=== PATIENT | male | born 1950 | race Caucasian/White ===

== ENCOUNTER 2017-08-06 08:01 | Day surgery (SDC) | payer BC ==
[~2017-08-06 08:01] MED LIST: Lactated Ringers 1,000 ML IV SCH
[2017-08-06] MEDS ORDERED: Propofol 200 MG/20 ML SDV ONE ×2 (09:05→09:31)
[2017-08-06] MEDS ORDERED: fentaNYL 100 MCG/2 ML SDV ONE (09:07)
--- NOTE | 2017-08-06 14:10 | OR ---
PREOPERATIVE DIAGNOSIS: Abdominal pain and abnormal CT findings. POSTOPERATIVE DIAGNOSIS: Abdominal pain and abnormal CT findings. PROCEDURES PERFORMED: 1. Upper endoscopy. 2. Colonoscopy. INDICATIONS: The patient is a 67-year-old male who presents for colonoscopy for further evaluation of CT findings. DESCRIPTION OF PROCEDURE: Procedure was done in the endoscopy suite. Sedation was given per Anesthesia. First attention was turned to the upper endoscopy. Endoscope was inserted across the pharynx into the esophagus into the stomach through the pylorus in the 1st and 2nd portion of duodenum. First and second portion of duodenum were normal. Scope was slowly withdrawn. Retroflexed of the stomach itself was normal. The scope was slowly withdrawn. The GE junction and esophagus were normal. FINAL DIAGNOSIS: Normal upper endoscopy. Next, he was placed in left lateral position. First, a rectal exam was done, was normal. Scope was introduced in the rectum, slowly advanced through the rectum, sigmoid, descending, transverse, and ascending colon until the cecum was reached. Upon reaching the cecum, the scope was slowly withdrawn looking all mucosal surface on the way out. No mucosal abnormalities lesions or polyps were noted. FINAL DIAGNOSIS: Normal colonoscopy. BKD: 08/06/2017 10:09:36 MODL: 08/06/2017 13:58:21 /[id number]
== END 2017-08-06 11:21 | disposition home or self-care (01) ==
LOC: VM.SDS 08:01
PROVIDERS: ATTEND Surgery
DX: R10.11 Right upper quadrant pain (principal); R93.3 Abnormal findings on diagnostic imaging of other parts of digestive tract; F41.9 Anxiety disorder, unspecified; E11.9 Type 2 diabetes mellitus without complications; K21.9 Gastro-esophageal reflux disease without esophagitis; Z88.0 Allergy status to penicillin; Z88.2 Allergy status to sulfonamides; Z79.82 Long term (current) use of aspirin; Z79.84 Long term (current) use of oral hypoglycemic drugs; Z79.899 Other long term (current) drug therapy; Z90.49 Acquired absence of other specified parts of digestive tract; F17.210 Nicotine dependence, cigarettes, uncomplicated
CPT/HCPCS: 43235; 45378; 82962; J2704; J3010; J7120

== ENCOUNTER 2019-12-08 09:02 | Inpatient (IN) | payer BC, MEDICARE ==
[2019-12-08] MEDS ORDERED: ALPRAZolam 0.25 MG Tab PO PRN (09:42)
[2019-12-08] MEDS ORDERED: Sodium Chloride 0.9% 10 ML Syringe FLUSH PRN (09:44)
[2019-12-08] MEDS ORDERED: Acetaminophen 325 MG Tab PO PRN (09:48)
[2019-12-08] MEDS ORDERED: Nicotine 21 MG/24 Hr Patch TRDERM SCH (10:00)
[2019-12-08] MEDS: Albuterol/Ipratropium 3.0-0.5 MG/3 ML Neb Soln NEB SCH ×5 (10:56→22:00)
[2019-12-08 11:08] LABS: ANION GAP 13.4 mmol/L (10-20); CHLORIDE,CL 102 mmol/L (98-107); SODIUM,NA 140 mmol/L (136-145)
[2019-12-08] MEDS: methylPREDNISolone Sodium Succinate 40 MG/1 ML SDV IVPUSH SCH (11:12)
[2019-12-08] MEDS: Nicotine 21 MG/24 Hr Patch TRDERM SCH (11:14)
[2019-12-08] MEDS: Levofloxacin/Dextrose 5%-Water 750 MG in Premix Bag 1 BAG IV SCH (11:27)
[2019-12-08] MEDS: Enoxaparin 40 MG/0.4 ML Syringe SUBCUT SCH (11:27)
[2019-12-08] MEDS ORDERED: Sodium Chloride 0.9% 500 ML IV SCH (14:45)
--- NOTE | 2019-12-08 16:52 | HP ---
CHIEF COMPLAINT: Shortness of breath. HISTORY OF PRESENT ILLNESS: A 69-year-old male patient was seen and examined by me in the clinic today at [facility] for the above-mentioned complaint. The patient had actually been seen in the clinic on 12/03/2019 and was diagnosed with influenza at that time. The patient was started on Tamiflu. He did take the Tamiflu for the full course. However, the patient states he has progressively gotten worse with his breathing. The patient is considerably short of breath. The patient does smoke cigarettes on a daily basis. The patient states that he has had fevers and chills at home. He feels very weak. The patient states that he has had a cough, but he is not able to expectorate any sputum. The patient has had headaches. He denies any dizziness or lightheadedness. The patient has not had any chest pain or palpitations. The patient denies any abdominal pain. Patient has not had any nausea or vomiting. PAST MEDICAL HISTORY: 1. COPD. 2. Rheumatoid arthritis. 3. GERD. 4. Major depressive disorder. 5. Diabetes type 2. 6. Hypertension. 7. Hyperlipidemia. PAST SURGICAL HISTORY: None. FAMILY HISTORY: Noncontributory. SOCIAL HISTORY: The patient does smoke cigarettes on a daily basis. The patient is . The patient is retired. REVIEW OF SYSTEMS: General: Complains of weakness and fatigue, fevers and chills at home. Respiratory: Shortness of breath, cough. Cardiovascular: Denies any chest pain or palpitations. Abdomen: Negative. Skin: Negative. Neurological: The patient denies any dizziness or lightheadedness, but he does endorse a headache. PHYSICAL EXAMINATION: General Presentation: The patient is alert, patient does not appear to be in any acute distress, patient appears to be acutely ill. Respiratory: Lung sounds are decreased, the patient has inspiratory and expiratory wheezing throughout all lung jose, patient has crackles in the left lobe, middle, and lower and right base crackles. Cardiovascular: Regular rate and rhythm, no murmur. Abdomen: Soft, hypoactive bowel sounds, nontender. Skin: Warm, dry, and intact. Neurological: The patient is alert. Patient is oriented to person, place, and time. LABORATORY STUDIES: 1. CBC: White blood cell count 5.6, hemoglobin 15.0, hematocrit 43.5, platelets are 109,000, neutrophils 47%, bands 4%. 2. CMP: Sodium is 140, potassium 4.4, chloride is 102, CO2 is 29, anion gap is 13.4, BUN is 12, creatinine 0.7, GFR is greater than 60, glucose 115, calcium 9.1, bilirubin 0.7, AST 23, ALT 37, alkaline phosphatase 80, total protein 7.1. 3. Lactic acid 0.9. 4. CRP 2.3. 5. UA: pH is 5.5, specific gravity 1.025, negative leukocytes, negative wbc's, negative rbc's. ASSESSMENT: 1. Left lower lobe pneumonia. 2. Acute chronic obstructive pulmonary disease exacerbation. 3. Hypotension. 4. Influenza B. 5. Type 2 diabetes, uncontrolled. 6. Hypertension associated with diabetes. 7. Dyslipidemia associated with type 2 diabetes. 8. Rheumatoid arthritis. 9. Nicotine dependence. PLAN: The patient will be admitted to the acute care floor at [facility] for the above mentioned diagnoses. The patient will be started on Levaquin 750 mg daily as the patient is allergic to penicillins and also for his significant COPD and cigarette smoking. The patient will be started on Solu-Medrol 40 mg daily. He will be started on IV fluids. The patient will be on a diabetic diet. Encourage early ambulation for DVT prophylaxis. The patient does wish to be a full code. The patient does wish to be transferred to higher level of care should the need arise. IV fluids for hypotension. We will have Respiratory Therapy see the patient for nebulizers and cough and deep breathing exercises. Physical Therapy will also see the patient for weakness and deconditioning. I do anticipate the patient to be admitted for at least 3 to 4 days. Note: This patient was seen and examined by me as an [facility] provider. TB: 12/08/2019 14:50:05 MODL: 12/08/2019 16:42:22 /[id number]
[2019-12-08] MEDS: METFORMIN PO SCH (17:38)
[2019-12-08] MEDS ORDERED: metFORMIN 500 MG Tab PO SCH (18:00)
[2019-12-08] MEDS: METOPROLOL TARTRATE 25 MG PO SCH (19:55)
[2019-12-08] MEDS: CITALOPRAM 20 MG PO SCH (20:08)
[2019-12-08] MEDS: ONGLYZA PO SCH (20:08)
[2019-12-08] MEDS: Sodium Chloride 0.9% 1,000 ML IV SCH (21:56)
[2019-12-09] MEDS: Albuterol/Ipratropium 3.0-0.5 MG/3 ML Neb Soln NEB SCH ×6 (02:00→22:33)
[2019-12-09] MEDS: Sodium Chloride 0.9% 1,000 ML IV SCH ×2 (06:27→19:35)
[2019-12-09] MEDS: Pantoprazole 40 MG Tab.CR (OWN SUPPLY) PO SCH (06:28)
[2019-12-09 07:05] LABS: CHLORIDE,CL 104 mmol/L (98-107); SODIUM,NA 142 mmol/L (136-145)
[2019-12-09 07:06] LABS: ANION GAP 11.6 mmol/L (10-20)
[2019-12-09] MEDS ORDERED: Magnesium Sulfate/Water 4 GM in Premix Bag 1 BAG IV ONE (07:34)
[2019-12-09] MEDS: methylPREDNISolone Sodium Succinate 40 MG/1 ML SDV IVPUSH SCH (08:08)
[2019-12-09] MEDS: METOPROLOL TARTRATE 25 MG PO SCH ×2 (08:14→19:31)
[2019-12-09] MEDS: METFORMIN PO SCH ×2 (08:16→17:57)
[2019-12-09] MEDS: Multivitamins with Iron/Calcium/Folic Acid/Minerals Tab PO SCH (08:16)
--- NOTE | 2019-12-09 10:28 | PN ---
Progress Note for SHENG CAMPO Date: 12/09/2019 Room #: VM.206 CHIEF COMPLAINT: Shortness of breath. SUBJECTIVE: A 69-year-old male patient was admitted yesterday to the acute care floor for acute COPD exacerbation, pneumonia, dehydration, hypotension, and hypoxia. The patient states this morning he is feeling much better. The patient states he is not sleeping well overnight. The patient continues to have a productive cough producing a green/yellow appearing purulent sputum. The patient states he still feels considerably weak. The patient has not had any focal neurological deficits. The patient denies any chest pain or palpitations. No leg swelling. The patient denies any headaches, dizziness, or lightheadedness. The patient has not had any skin issues. The patient states that he feels short of breath with activity. The patient has required O2 throughout his stay. PHYSICAL EXAMINATION: General Presentation: The patient is alert. Patient is cooperative. Patient does not appear to be in any acute distress. Respiratory: Lung sounds are decreased. Crackles bibasilar and left upper lung. Scattered rhonchi throughout. Cardiovascular: Regular rate and rhythm, no murmurs. Abdomen: Soft, nontender. Bowel sounds are hypoactive x4. Skin: Warm, dry, and intact. Neurological: Sensation is intact. The patient is alert and oriented x3. Vital Signs: Temperature 97.7, pulse is 79, blood pressure is 115/57, respiratory rate is 18, and oxygen saturation 97% on 1.5 L. LABORATORY WORK: 1. CBC: White blood cell count 6.1, hemoglobin 12.6, hematocrit 37.3, platelets are 108,000. 2. BMP: Sodium 142, potassium 3.6, chloride 104, CO2 is 30, anion gap is 11.6, BUN is 11, creatinine 0.7, GFR is greater than 60, glucose is 142, calcium 8.7. 3. Magnesium 1.4. ASSESSMENT: 1. Community-acquired pneumonia. 2. Acute chronic obstructive pulmonary disease exacerbation. 3. Hypoxia. 4. Hypotension - improving. 5. Type 2 diabetes, uncontrolled. 6. Hypertension associated with diabetes. 7. Dyslipidemia associated with diabetes. 8. Rheumatoid arthritis. 9. Nicotine dependence. PLAN: We will continue with acute cares for now. We will continue with Levaquin 750 mg IV daily. Continue with IV fluids. We will also continue with the Solu-Medrol. Continue with nebulizers. We will give the patient 4 g of IV magnesium today. We will recheck blood work in the morning. Encourage patient to ambulate as he is able. We will await physical therapy evaluation today. Continue with respiratory therapy. Note: This patient was seen and examined by me as an [facility] provider. TB: 12/09/2019 07:43:55 MODL: 12/09/2019 10:21:35 /[id number]
[2019-12-09] MEDS: Aspirin 81 MG Tab.EC PO SCH ×2 (10:39→19:35)
[2019-12-09] MEDS: Enoxaparin 40 MG/0.4 ML Syringe SUBCUT SCH (10:55)
[2019-12-09] MEDS: Levofloxacin/Dextrose 5%-Water 750 MG in Premix Bag 1 BAG IV SCH (10:56)
[2019-12-09] MEDS: Nicotine 21 MG/24 Hr Patch TRDERM SCH (10:57)
[2019-12-09] MEDS: CITALOPRAM 20 MG PO SCH (19:34)
[2019-12-09] MEDS: ONGLYZA PO SCH (19:34)
[2019-12-10] MEDS: Albuterol/Ipratropium 3.0-0.5 MG/3 ML Neb Soln NEB SCH ×6 (02:23→22:23)
[2019-12-10] MEDS: Sodium Chloride 0.9% 1,000 ML IV SCH (05:21)
[2019-12-10] MEDS: Pantoprazole 40 MG Tab.CR (OWN SUPPLY) PO SCH (06:14)
[2019-12-10 07:07] LABS: ANION GAP 10.1 mmol/L (10-20); CHLORIDE,CL 107 mmol/L (98-107); SODIUM,NA 143 mmol/L (136-145)
[2019-12-10] MEDS ORDERED: Magnesium Sulfate/Water 2 GM in Premix Bag 1 BAG IV ONE (07:59)
[2019-12-10] MEDS: METFORMIN PO SCH ×2 (08:44→17:41)
[2019-12-10] MEDS: METOPROLOL TARTRATE 25 MG PO SCH ×2 (08:46→19:21)
[2019-12-10] MEDS: Multivitamins with Iron/Calcium/Folic Acid/Minerals Tab PO SCH (08:55)
[2019-12-10] MEDS: methylPREDNISolone Sodium Succinate 40 MG/1 ML SDV IVPUSH SCH (08:55)
--- NOTE | 2019-12-10 09:09 | CR ---
[id number] RAD/RAD Chest PA And Lateral EXAM: FRONTAL AND LATERAL CHEST INDICATION: PNEUMONIA, COPD, HYPOXIA. COMPARISON: September 06, 2013. DISCUSSION: Mild left base atelectasis and possible early infiltrates. Hyperinflation consistent with chronic obstructive pulmonary disease. Stable left midlung and basilar scarring. Normal heart size. IMPRESSION: 1. Mild left base atelectasis and/or early infiltrates. Marlon Long MD 12/10/19 0906 Thank you for allowing us to participate in the care of your patient.
[2019-12-10] MEDS: Levofloxacin/Dextrose 5%-Water 750 MG in Premix Bag 1 BAG IV SCH (10:52)
[2019-12-10] MEDS: Enoxaparin 40 MG/0.4 ML Syringe SUBCUT SCH (10:57)
[2019-12-10] MEDS: Nicotine 21 MG/24 Hr Patch TRDERM SCH (10:58)
[2019-12-10] MEDS: CITALOPRAM 20 MG PO SCH (19:21)
[2019-12-10] MEDS: ONGLYZA PO SCH (19:22)
[2019-12-11] MEDS: Albuterol/Ipratropium 3.0-0.5 MG/3 ML Neb Soln NEB SCH ×2 (03:22→06:03)
--- NOTE | 2019-12-11 04:34 | PN ---
Progress Note for SHENG CAMPO Date: 12/10/2019 Room #: VM.206 CHIEF COMPLAINT: Shortness of breath. SUBJECTIVE: The patient states that he is feeling much better today. The patient is admitted to the acute care floor for COPD exacerbation, pneumonia, dehydration, hypotension, and hypoxia. The patient has continued to require oxygen, especially with activity. The patient states that he has not been sleeping well overnight. The patient states that his cough has gotten much better. The patient's weakness has also improved. The patient has not had any focal neurological problems. The patient does have shortness of breath with activity. The patient has not had any headaches, dizziness, or lightheadedness. PHYSICAL EXAMINATION: General presentation: The patient is alert. The patient is cooperative. The patient does not appear to be in any acute distress. Respiratory: Lung sounds are decreased. The patient continues to have crackles bibasilar. Scattered rhonchi throughout. Cardiovascular: Regular rate and rhythm. No murmurs. Abdomen: Soft, nontender. Bowel sounds are hypoactive x4. Skin: Warm, dry, and intact. Neurological: Sensation is intact. The patient is alert and oriented x3. Vital signs: Temperature 97.4, pulse is 74, blood pressure is 96/66, respiratory rate 18, oxygen saturation is 95% on 1 L of O2. LABORATORY WORK: 1. CBC: White blood cell count 12.4, hematocrit 38.0, platelet count 122. 2. BMP: Sodium 143, potassium 4.1, chloride 107, anion gap is 10.1, BUN is 10, creatinine 0.7, GFR is greater than 60, glucose is 108, calcium is 8.6. 3. Magnesium 1.7. ASSESSMENT: 1. Community-acquired pneumonia. 2. Acute chronic obstructive pulmonary disease exacerbation. 3. Hypoxia. 4. Hypotension, improved. 5. Type 2 diabetes, uncontrolled. 6. Hypertension associated with diabetes. 7. Dyslipidemia associated with diabetes. 8. Rheumatoid arthritis. 9. Nicotine dependence. PLAN: We will continue with acute cares for now. The patient needs to be off oxygen before he can be discharged home. We will ask Respiratory Therapy to do home oxygen study. The patient will be given 2 g of IV magnesium today. We will recheck the blood work in the morning. We will also check a peripheral smear. We will discontinue IV fluids today. The patient should be able to be discharged home tomorrow. Note: This patient was seen and examined by me as an [facility] provider. TB: 12/10/2019 08:16:24 MODL: 12/11/2019 04:27:19 /[id number]
[2019-12-11] MEDS: Pantoprazole 40 MG Tab.CR (OWN SUPPLY) PO SCH (06:03)
[2019-12-11 07:02] LABS: CHLORIDE,CL 104 mmol/L (98-107); SODIUM,NA 144 mmol/L (136-145)
[2019-12-11 07:03] LABS: ANION GAP 13.5 mmol/L (10-20)
[2019-12-11] MEDS: METFORMIN PO SCH (07:38)
[2019-12-11] MEDS: METOPROLOL TARTRATE 25 MG PO SCH (07:39)
[2019-12-11] MEDS: methylPREDNISolone Sodium Succinate 40 MG/1 ML SDV IVPUSH SCH (07:40)
[2019-12-11] MEDS: Multivitamins with Iron/Calcium/Folic Acid/Minerals Tab PO SCH (07:40)
[2019-12-11] MEDS: Aspirin 81 MG Tab.EC PO SCH (07:41)
--- NOTE | 2019-12-11 14:11 | DISCH ---
ADMITTING DIAGNOSES: 1. Left lower lobe pneumonia. 2. Acute chronic obstructive pulmonary disease exacerbation. 3. Hypotension. 4. Influenza B. 5. Type 2 diabetes, uncontrolled. 6. Hypertension associated with diabetes. 7. Dyslipidemia associated with type 2 diabetes. 8. Rheumatoid arthritis. 9. Nicotine dependence. DISCHARGE DIAGNOSES: 1. Left lower lobe pneumonia, improving. 2. Acute chronic obstructive pulmonary disease exacerbation, improved. 3. Hypotension, resolved. 4. Influenza B, resolved. CONSULTATIONS: Physical therapy. BRIEF HISTORY: The patient was admitted to the acute care floor at [facility] on 12/08/2019, with the above diagnoses. The patient had been seen in clinic that day. An x-ray showed a left lower lobe pneumonia and the patient was afebrile and also had influenza B. The patient was significantly dehydrated. A decision was made to admit the patient acute given his guarded condition. HOSPITAL COURSE: The patient was started on Levaquin 750 mg IV for his COPD exacerbation, and pneumonia. The patient tolerated the antibiotics well without any side effects. The patient remained afebrile and his hypotension had improved with IV fluid resuscitation. The patient was placed on Lovenox for DVT prophylaxis. The patient's blood work remained stable, however, his magnesium remained low despite IV magnesium that was given during his stay. The patient did not require any physical therapy. The patient did not have any issues with urination and bowel movements. The patient's cough and congestion had improved considerably. The patient did require continuous oxygen through most of his stay. The patient was able to be weaned off oxygen last evening. REVIEW OF SYSTEMS: General: Negative. Respiratory: Productive cough, no shortness of breath. Cardiovascular: Denies chest pain or palpitations. Abdomen: Negative. Skin: Negative. Neurological: Negative. DISCHARGE PHYSICAL EXAM: General: The patient is alert. Patient is cooperative. The patient does not appear to be in any acute distress. Respiratory: Lung sounds are decreased throughout, otherwise clear. cardiovascular: Regular rate and rhythm, no murmur. Abdomen: Soft and nontender. Bowel sounds are active x4. Skin: Warm, dry, and intact. Neurological: The patient is alert. Patient is oriented to person, place, and time. Sensation intact. Vital Signs: Temperature 97.6, pulse is 69, blood pressure 114/69, oxygen saturation 95% on room air, and respiratory rate 18. DISCHARGE LABORATORY DATA: 1. CBC, white blood cell count 12.6, hematocrit 37.5, platelets are 137,000. 2. BMP: Sodium 144, potassium 3.5, chloride 104, CO2 is 30, anion gap is 13.5, BUN is 15, creatinine 0.7. GFR is greater than 60. Glucose is 113, calcium is 8.8, magnesium 1.7. DISCHARGE IMAGING STUDIES: Chest x-ray shows mild left base atelectasis and/or early infiltrates. DISCHARGE MEDICATIONS: 1. Xanax 0.25 mg 1 tablet p.o. twice daily as needed. 2. Aspirin 81 mg 1 tablet p.o. every other day. 3. Citalopram 20 mg 1 tablet p.o. daily at bedtime. 4. Lisinopril 10 mg 1 tablet p.o. daily. 5. Metformin 1000 mg 1 tablet p.o. twice daily. 6. Metoprolol 25 mg 1 tablet p.o. twice daily. 7. Multivitamin 1 tablet p.o. daily. 8. Onglyza 5 mg 1 tablet p.o. daily at bedtime. 9. Protonix 40 mg 1 tablet p.o. daily. 10.Simvastatin 20 mg 1 tablet p.o. daily. ASSESSMENT: 1. Community-acquired pneumonia, improved. 2. Acute chronic obstructive pulmonary disease exacerbation, improved. 3. Influenza B, resolved. 4. Hypotension, resolved. 5. Diabetes mellitus, uncontrolled. 6. Hypertension associated with diabetes. 7. Dyslipidemia associated with type 2 diabetes. 8. Rheumatoid arthritis. 9. Nicotine dependence. PLAN: The patient will be discharged home today. The patient will continue on Levaquin 500 mg daily for the next 5 days. Patient will also be started on a Medrol Dosepak. Prescriptions were sent with the patient. No changes with any other home medications. The patient does have a followup appointment with his PCP tomorrow. Discussed cough and deep breathing exercises with the patient. Encouraged smoking cessation and discussed the need that the patient needs to quit smoking. The patient was discharged in hemodynamically stable condition. Note: This patient was seen and examined by me as an [facility] provider. TB: 12/11/2019 08:08:22 MODL: 12/11/2019 14:02:48 /[id number]
== END 2019-12-11 08:15 | disposition home or self-care (01) | DRG 139 ==
LOC: VM.MS 09:09
PROVIDERS: ADMIT Nurse Practitioner Family; ATTEND Nurse Practitioner Family
DX: J10.00 Influenza due to other identified influenza virus with unspecified type of pneumonia (principal); M06.9 Rheumatoid arthritis, unspecified; K21.9 Gastro-esophageal reflux disease without esophagitis; F32.9 Major depressive disorder, single episode, unspecified; E11.9 Type 2 diabetes mellitus without complications; I10 Essential (primary) hypertension; R09.02 Hypoxemia; E78.5 Hyperlipidemia, unspecified; F17.210 Nicotine dependence, cigarettes, uncomplicated; J44.0 Chronic obstructive pulmonary disease with (acute) lower respiratory infection; J44.1 Chronic obstructive pulmonary disease with (acute) exacerbation; I95.9 Hypotension, unspecified; Z88.0 Allergy status to penicillin; Z71.6 Tobacco abuse counseling
CPT/HCPCS: 36415; 71046; 80048; 80053; 81001; 82043; 82570; 82962; 83605; 83735; 85008; 85025; 85046; 86140; 87040; 87804; 87804-59; 94640; 94760; 97116-GP; 97162-GP; A9270-GY; J1650; J1956; J2920; J3475; J7030; J7620-GY

== ENCOUNTER 2020-04-22 20:41 | Emergency (ER) | payer BC, MEDICARE ==
[2020-04-22] MEDS ORDERED: Cephalexin 500 MG Cap PO ONE (20:55)
--- NOTE | 2020-04-22 20:55 | EDM.PDOC ---
ED HPI GENERAL MEDICAL PROBLEM - General Chief Complaint: Upper Extremity Injury/Pain Stated Complaint: bug bite Time Seen by Provider: 04/22/20 20:45 Source of Information: Reports: Patient History Limitations: Reports: No Limitations - History of Present Illness INITIAL COMMENTS - FREE TEXT/NARRATIVE: Patient comes into the emergency department with complaint of left lower arm swelling, redness and itching. Patient states that he noticed it around 4 AM as small circular bug bite appearance on his left arm and it has progressively gotten larger throughout the day. He also has a blister formation with a secondary blister formation linear to the area. Denies any pain or discomfort. He states he normally does not have much pain or discomfort due to his peripheral neuropathy related to his diabetes. He states that he is noticed the redness and swelling has increased in the blister formation is also increased. His main concern is arm becoming infected. Patient has been hospitalized for great lengths regarding infections last winter. Patient also states that the area is itchy. Patient denies any COVID symptoms. He also denies any chest pain, shortness of breath, headache, blurred vision, CMS concerns, range of motion concerns, peripheral edema, or gastrointestinal no concerns. Patient states he is been relatively healthy and has no other issues Onset: Sudden, Gradual Improves with: Reports: None Worsens with: Reports: None Associated Symptoms: Reports: No Other Symptoms - Related Data Allergies Allergy/AdvReac Type Severity Reaction Status Date / Time Penicillins Allergy Cannot Verified 04/22/20 20:53 Remember Sulfa (Sulfonamide Allergy Cannot Verified 04/22/20 20:53 Antibiotics) Remember Home Meds: Home Meds Citalopram Hydrobromide [Citalopram HBr] 20 mg PO DAILY 03/14/14 [History] Metoprolol Tartrate [Lopressor] 25 mg PO BID 03/14/14 [History] Pantoprazole Sodium 40 mg PO DAILY 03/14/14 [History] Saxagliptin [Onglyza] 5 mg PO DAILY 03/14/14 [History] Simvastatin 20 mg PO BEDTIME 03/14/14 [History] lisinopriL [Prinivil] 10 mg PO DAILY 03/14/14 [History] metFORMIN [Glucophage] 1,000 mg PO BID@0800,1800 03/14/14 [History] Aspirin [Halfprin] 81 mg PO Q48H 08/01/17 [History] Multivitamin [Multivitamins] 1 tab PO DAILY 08/01/17 [History] ALPRAZolam [Xanax] 0.25 mg PO BID PRN 12/08/19 [History] cephALEXin [Keflex] 500 mg PO TID #29 cap 04/22/20 [Rx] Past Medical History - Past Health History Medical/Surgical History: Denies Medical/Surgical History HEENT History: Reports: None Cardiovascular History: Reports: Hypertension Respiratory History: Reports: COPD Gastrointestinal History: Reports: GERD, Other (See Below) Other Gastrointestinal History: RUQ pain Genitourinary History: Reports: None Musculoskeletal History: Reports: Fibromyalgia, RA Neurological History: Reports: None Psychiatric History: Reports: Dementia Endocrine/Metabolic History: Reports: Diabetes, Type II Hematologic History: Reports: None Immunologic History: Reports: None Oncologic (Cancer) History: Reports: None Dermatologic History: Reports: None - Past Surgical History Head Surgeries/Procedures: Reports: None GI Surgical History: Reports: Appendectomy, Cholecystectomy Musculoskeletal Surgical History: Reports: Arthroscopic Knee, Other (See Below) Other Musculoskeletal Surgeries/Procedures:: finger sx Oncologic Surgical History: Reports: None Social & Family History - Family History Family Medical History: Noncontributory - Caffeine Use Caffeine Use: Reports: Coffee, Soda Review of Systems - Review of Systems Review Of Systems: Comprehensive ROS is negative, except as noted in HPI. Constitutional: Reports: No Symptoms Eyes: Reports: No Symptoms Ears: Reports: No Symptoms Nose: Reports: No Symptoms Mouth/Throat: Reports: No Symptoms Respiratory: Reports: No Symptoms Cardiovascular: Reports: No Symptoms GI/Abdominal: Reports: No Symptoms Musculoskeletal: Reports: No Symptoms Neurological: Reports: No Symptoms Psychiatric: Reports: No Symptoms ED EXAM, GENERAL - Physical Exam Exam: See Below Exam Limited By: No Limitations General Appearance: Alert, WD/WN, No Apparent Distress Throat/Mouth: Normal Inspection, Normal Lips, No Airway Compromise Head: Atraumatic, Normocephalic Neck: Normal Inspection, Supple, Non-Tender, Full Range of Motion Respiratory/Chest: No Respiratory Distress, No Accessory Muscle Use, Chest Non- Tender Cardiovascular: Normal Peripheral Pulses, Regular Rate, Rhythm, No Edema Peripheral Pulses: 4+: Radial (L), Radial (R) Extremities: Increased Warmth, Redness, Other (pea size blister formation posterior wrist. 2 pinsize blister formations linear/proximal to larger blister. redness and swelling noted 3 inch diameter posterior wrist. CMS and ROM intact. ) Neurological: Alert, Oriented, Normal Gait Psychiatric: Normal Affect, Normal Mood Skin Exam: Warm, Normal Color Departure - Departure Time of Disposition: 21:00 Disposition: Home, Self-Care 01 Condition: Good Clinical Impression: Bug bite with infection Qualifiers: Encounter type: initial encounter Qualified Code(s): W57.XXXA - Bitten or stung by nonvenomous insect and other nonvenomous arthropods, initial encounter - Discharge Information Instructions: Cellulitis, Adult, [id number], Spider Bite, [id number] Forms: ED Department Discharge Additional Instructions: 1. rest 2. increase your water intake 3. Take all antibiotics as prescribed even if feeling better 4. Take a probiotic while on antibiotics to help promote healthy GI motility 5. Activity and diet as tolerated 6. Can use Ibuprofen and tylenol for any fever or discomfort 7. Follow up with your PCP or return if symptoms progress or worsen 8. Education provided to you regarding your illness, probiotics, antibiotic prescribed 9. Call with any questions or concerns 10. do not pop blister formation. If open wounds appear keep area cover and dry - Assessment/Plan Assessment:: 1. left arm cellulitis 2. Left arm infected bug bite Plan: 1. Keflex given in the ER 2. Keflex script sent with the patient 3. Patient and nursing staff was updated regarding the plan of care 4. Education provided the patient regarding activity, diet, rest, [id number] medication modalities, and follow-up care was provided 5. Patient and family are agreeable to the above plan of care 6. All questions and concerns were addressed with the patient and family prior to discharge
== END 2020-04-22 21:20 | disposition home or self-care (01) ==
LOC: VM.ED 20:41
DX: S40.862A Insect bite (nonvenomous) of left upper arm, initial encounter (principal); L08.9 Local infection of the skin and subcutaneous tissue, unspecified; I10 Essential (primary) hypertension; K21.9 Gastro-esophageal reflux disease without esophagitis; E11.9 Type 2 diabetes mellitus without complications; M06.9 Rheumatoid arthritis, unspecified; Z79.82 Long term (current) use of aspirin; Z79.84 Long term (current) use of oral hypoglycemic drugs; Z79.899 Other long term (current) drug therapy; Z88.2 Allergy status to sulfonamides; Z88.0 Allergy status to penicillin; W57.XXXA Bitten or stung by nonvenomous insect and other nonvenomous arthropods, initial encounter
CPT/HCPCS: 99282; 99283-GF; A9270-GY

== ENCOUNTER 2020-04-23 13:43 | Emergency (ER) | payer BC ==
[2020-04-23] MEDS ORDERED: cefTRIAXone 1 GM, Lidocaine 1% 2.1 ML IM ONE ×2 (14:03)
--- NOTE | 2020-04-23 14:06 | EDM.PDOC ---
ED HPI GENERAL MEDICAL PROBLEM - General Chief Complaint: Skin Complaint Stated Complaint: BUG BITE GROWING Time Seen by Provider: 04/23/20 13:45 Source of Information: Reports: Patient History Limitations: Reports: No Limitations - History of Present Illness INITIAL COMMENTS - FREE TEXT/NARRATIVE: Patient comes into the emergency department with complaint of left lower arm swe lling, redness and itching that has continued to grow since being seen in the ER last evening. Patient states that he noticed it around 4 AM Sunday am as small circular bug bite appearance on his left arm and it has progressively gotten larger throughout the day. He also has a blister formation with a secondary blister formation linear to the area. Denies any pain or discomfort. He states he normally does not have much pain or discomfort due to his peripheral neuropathy related to his diabetes. He states that he is noticed the redness and swelling has increased in the blister formation is also increased. His main concern is arm becoming infected. He was then seen in the ER and given oral Keflex and encouraged to return if it progressed/worsen. Patient returns stating it is draining more and it has grown past the rodriguez that were drawn last night on the skin. Patient also states that the area is itchy but is much better with the use of Benadryl. Patient continues to deny any COVID symptoms. He also denies any chest pain, shortness of breath, headache, blurred vision, CMS concerns, range of motion concerns, peripheral edema, or gastrointestinal no concerns. 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 (see below) (2 doses keflex ) - Related Data Allergies Allergy/AdvReac Type Severity Reaction Status Date / Time Penicillins Allergy Cannot Verified 04/23/20 14:06 Remember Sulfa (Sulfonamide Allergy Cannot Verified 04/23/20 14:06 Antibiotics) Remember Home Meds: Home Meds Citalopram Hydrobromide [Citalopram HBr] 20 mg PO DAILY 03/14/14 [History] Metoprolol Tartrate [Lopressor] 25 mg PO BID 03/14/14 [History] Pantoprazole Sodium 40 mg PO DAILY 03/14/14 [History] Saxagliptin [Onglyza] 5 mg PO DAILY 03/14/14 [History] Simvastatin 20 mg PO BEDTIME 03/14/14 [History] lisinopriL [Prinivil] 10 mg PO DAILY 03/14/14 [History] metFORMIN [Glucophage] 1,000 mg PO BID@0800,1800 03/14/14 [History] Aspirin [Halfprin] 81 mg PO Q48H 08/01/17 [History] Multivitamin [Multivitamins] 1 tab PO DAILY 08/01/17 [History] ALPRAZolam [Xanax] 0.25 mg PO BID PRN 12/08/19 [History] cephALEXin [Keflex] 500 mg PO TID #29 cap 04/22/20 [Rx] Past Medical History - Past Health History Medical/Surgical History: Denies Medical/Surgical History HEENT History: Reports: None Cardiovascular History: Reports: Hypertension Respiratory History: Reports: COPD Gastrointestinal History: Reports: GERD, Other (See Below) Other Gastrointestinal History: RUQ pain Genitourinary History: Reports: None Musculoskeletal History: Reports: Fibromyalgia, RA Neurological History: Reports: None Psychiatric History: Reports: Dementia Endocrine/Metabolic History: Reports: Diabetes, Type II Hematologic History: Reports: None Immunologic History: Reports: None Oncologic (Cancer) History: Reports: None Dermatologic History: Reports: None - Past Surgical History Head Surgeries/Procedures: Reports: None GI Surgical History: Reports: Appendectomy, Cholecystectomy Musculoskeletal Surgical History: Reports: Arthroscopic Knee, Other (See Below) Other Musculoskeletal Surgeries/Procedures:: finger sx Oncologic Surgical History: Reports: None Social & Family History - Family History Family Medical History: Noncontributory - Caffeine Use Caffeine Use: Reports: Coffee, Soda ED ROS GENERAL - Review of Systems Review Of Systems: Comprehensive ROS is negative, except as noted in HPI. Constitutional: Reports: No Symptoms HEENT: Reports: No Symptoms Respiratory: Reports: No Symptoms Cardiovascular: Reports: No Symptoms Endocrine: Reports: No Symptoms GI/Abdominal: Reports: No Symptoms : Reports: No Symptoms Musculoskeletal: Reports: No Symptoms Neurological: Reports: No Symptoms Psychiatric: Reports: No Symptoms Hematologic/Lymphatic: Reports: No Symptoms Immunologic: Reports: No Symptoms ED EXAM, SKIN/RASH Exam: See Below Exam Limited By: No Limitations General Appearance: Alert, WD/WN, No Apparent Distress Head: Atraumatic, Normocephalic Neck: Normal Inspection, Supple, Non-Tender, Full Range of Motion Respiratory/Chest: No Respiratory Distress, No Accessory Muscle Use, Chest Non- Tender Cardiovascular: Normal Peripheral Pulses, Regular Rate, Rhythm, No Edema Peripheral Pulses: 4+: Radial (L), Radial (R) Extremities: Normal Range of Motion, Non-Tender, No Pedal Edema, Normal Capillary Refill, Redness (left wrist- redness, warmth approx 5 in diameter, 3 blister formation with minimal drainage noted. from them. linear patter largest slightly larger than pea size. ) Neurological: Alert, Oriented, Normal Gait Psychiatric: Normal Affect, Normal Mood Skin: Warm, Intact, Normal Color, No Rash Course - Vital Signs Last Recorded V/S: Last Vital Signs Temp 37.1 C 04/23/20 13:52 Pulse 67 04/23/20 13:52 Resp 16 04/23/20 13:52 BP 115/52 L 04/23/20 13:52 Pulse Ox 95 04/23/20 13:52 - Orders/Labs/Meds Meds: Medications Discontinued Medications Generic Name Dose Route Start Last Admin Trade Name Mazin PRN Reason Stop Dose Admin Ceftriaxone Sodium 1 gm/ 0 gm 04/23/20 14:03 Lidocaine HCl 2.1 ml IM 04/23/20 14:04 ONETIME ONE Departure - Departure Time of Disposition: 14:20 Disposition: Home, Self-Care 01 Condition: Good Clinical Impression: Cellulitis Qualifiers: Site of cellulitis: extremity Site of cellulitis of extremity: upper extremity Laterality: left Qualified Code(s): L03.114 - Cellulitis of left upper limb - Discharge Information *PRESCRIPTION DRUG MONITORING PROGRAM REVIEWED*: Not Applicable *COPY OF PRESCRIPTION DRUG MONITORING REPORT IN PATIENT JEAN PAUL: Not Applicable Instructions: Cellulitis, Adult, Spider Bite, [id number] Referrals: Vilma Nichols, [Primary Care Provider] - Forms: ED Department Discharge Additional Instructions: 1. rest 2. increase your water intake 3. Take all antibiotics as prescribed even if feeling better 4. Take a probiotic while on antibiotics to help promote healthy GI motility 5. Activity and diet as tolerated 6. Can use Ibuprofen and Tylenol for any fever or discomfort 7. Follow up with your PCP or return if symptoms progress or worsen 8. Education provided to you regarding your illness, probiotics, antibiotic prescribed 9. Call with any questions or concerns 10. Keep the area clean and dry and covered if outdoors or working in dirty areas 11. Continue to take Benadryl as needed for itching Sepsis Event Note (ED) - Focused Exam Vital Signs: Vital Signs Temp Pulse Resp BP Pulse Ox 04/23/20 13:52 37.1 C 67 16 115/52 L 95 - Assessment/Plan Assessment:: 1. cellulitis 2. infected bug bite Plan: 1. Rocephin 1gm IM given in ER. 2. Patient is encouraged to continue with oral antibiotic treatment as well as Benadryl 3. Patient is encouraged to also continue to monitor closely for worsen ing/progression of wound or systemic effects and advised to return for admission if warranted 4. Patient and nursing staff was updated regarding the plan of care 5. Education provided the patient regarding activity, diet, rest, [id number] medication modalities, and follow-up care was provided 6. Patient and family are agreeable to the above plan of care 7. All questions and concerns were addressed with the patient and family prior to discharge
== END 2020-04-23 14:42 | disposition home or self-care (01) ==
LOC: VM.ED 13:43
DX: L03.114 Cellulitis of left upper limb (principal); I10 Essential (primary) hypertension; J44.9 Chronic obstructive pulmonary disease, unspecified; K21.9 Gastro-esophageal reflux disease without esophagitis; E11.9 Type 2 diabetes mellitus without complications; Z79.84 Long term (current) use of oral hypoglycemic drugs; Z88.0 Allergy status to penicillin; Z88.2 Allergy status to sulfonamides; Z79.82 Long term (current) use of aspirin; Z79.899 Other long term (current) drug therapy
CPT/HCPCS: 96372; 99283; J0696; J2001; 99284-GF

== ENCOUNTER 2021-11-28 18:22 | Emergency (ER) | payer MEDICARE, OTHER ==
[2021-11-28] MEDS: Magnesium Oxide 400 MG Tab PO ONE ×2 (19:13→19:21)
[2021-11-28] MEDS: Potassium Chloride 10 MEQ Tab.ER PO ONE (19:20)
[2021-11-28] MEDS: Potassium Chloride 10% 20 MEQ/15 ML Soln 15 ML UD Cup PO ONE (19:21)
== END 2021-11-28 19:28 | disposition home or self-care (01) ==
LOC: VM.ED 18:22
DX: E87.6 Hypokalemia (principal); I10 Essential (primary) hypertension; J44.9 Chronic obstructive pulmonary disease, unspecified; K21.9 Gastro-esophageal reflux disease without esophagitis; M06.9 Rheumatoid arthritis, unspecified; E11.9 Type 2 diabetes mellitus without complications; Z72.0 Tobacco use; Z88.2 Allergy status to sulfonamides; Z88.0 Allergy status to penicillin; Z88.8 Allergy status to other drugs, medicaments and biological substances; Z79.82 Long term (current) use of aspirin; Z79.84 Long term (current) use of oral hypoglycemic drugs; Z79.899 Other long term (current) drug therapy
CPT/HCPCS: 99284; A9270-GY

== ENCOUNTER 2025-03-21 06:40 | Emergency (ER) | payer MEDICARE, OTHER | END 2025-03-21 07:54 | disposition home or self-care (01) | LOC: VM.ED 06:40 | DX: S00.01XA Abrasion of scalp, initial encounter (principal); I10 Essential (primary) hypertension; M19.90 Unspecified osteoarthritis, unspecified site; E11.9 Type 2 diabetes mellitus without complications; Z88.0 Allergy status to penicillin; Z79.82 Long term (current) use of aspirin; Z88.2 Allergy status to sulfonamides; Z79.84 Long term (current) use of oral hypoglycemic drugs; Z79.899 Other long term (current) drug therapy; Z79.4 Long term (current) use of insulin; W19.XXXA Unspecified fall, initial encounter | CPT/HCPCS: 99283; 99284 ==

== ENCOUNTER 2025-05-10 09:20 | Emergency (ER) | payer MEDICARE, OTHER ==
[2025-05-10 09:46] LABS: BASOPHILS ABSOLUTE AUTO 0.0 x10^3/uL (0.0-0.2); BASOPHILS PERCENT AUTO 0.5 % (0.2-1.2); EOSINOPHILS ABSOLUTE AUTO 0.2 x10^3/uL (0.0-0.5); EOSINOPHILS PERCENT AUTO 2.4 % (0.0-4.0); IMMATURE GRAN ABSOLUTE AUTO 0.03 x10^3/uL (0.00-0.07); IMMATURE GRAN PERCENT AUTO 0.40 % (0.00-0.43); LYMPHOCYTES ABSOLUTE AUTO 1.0 x10^3/uL (1.0-4.8); LYMPHOCYTES PERCENT AUTO 12.4 % (25.0-50.0); MONOCYTES ABSOLUTE AUTO 0.9 x10^3/uL (0.0-0.8); MONOCYTES PERCENT AUTO 11.6 % (2.0-11.0); NEUTROPHILS ABSOLUTE AUTO 5.8 x10^3/uL (1.8-7.7); NEUTROPHILS PERCENT AUTO 72.7 % (50.0-80.0); RED BLOOD CELL COUNT 3.59 x10^6/uL (4.5-6.0); WHITE BLOOD CELL COUNT,WBC 7.9 x10^3/uL (4.0-10.0)
[2025-05-10 10:08] LABS: PLATELET COUNT,PLT 160 x10^3/uL (130-400)
== END 2025-05-10 09:59 | disposition home or self-care (01) ==
LOC: VM.ED 09:20
DX: S80.812A Abrasion, left lower leg, initial encounter (principal); I10 Essential (primary) hypertension; E11.9 Type 2 diabetes mellitus without complications; Z79.82 Long term (current) use of aspirin; Z79.899 Other long term (current) drug therapy; Z88.0 Allergy status to penicillin; Z88.2 Allergy status to sulfonamides; Z88.8 Allergy status to other drugs, medicaments and biological substances; Z90.49 Acquired absence of other specified parts of digestive tract; X58.XXXA Exposure to other specified factors, initial encounter
CPT/HCPCS: 36415; 85025; 99283

== ENCOUNTER 2025-09-12 22:10 | Emergency (ER) | payer MEDICARE, OTHER ==
[2025-09-12] MEDS ORDERED: Sodium Chloride 0.9% 10 ML Syringe FLUSH PRN (22:13)
[2025-09-12 22:33] LABS: BASOPHILS ABSOLUTE AUTO 0.0 x10^3/uL (0.0-0.2); BASOPHILS PERCENT AUTO 0.1 % (0.2-1.2); EOSINOPHILS ABSOLUTE AUTO 0.0 x10^3/uL (0.0-0.5); EOSINOPHILS PERCENT AUTO 0.4 % (0.0-4.0); IMMATURE GRAN ABSOLUTE AUTO 0.03 x10^3/uL (0.00-0.07); IMMATURE GRAN PERCENT AUTO 0.30 % (0.00-0.43); LYMPHOCYTES ABSOLUTE AUTO 1.3 x10^3/uL (1.0-4.8); LYMPHOCYTES PERCENT AUTO 11.7 % (25.0-50.0); MONOCYTES ABSOLUTE AUTO 1.9 x10^3/uL (0.0-0.8); MONOCYTES PERCENT AUTO 17.0 % (2.0-11.0); NEUTROPHILS ABSOLUTE AUTO 8.0 x10^3/uL (1.8-7.7); NEUTROPHILS PERCENT AUTO 70.5 % (50.0-80.0); PLATELET COUNT,PLT 168 x10^3/uL (130-400); RED BLOOD CELL COUNT 4.49 x10^6/uL (4.5-6.0)
[2025-09-12 22:50] LABS: WHITE BLOOD CELL COUNT,WBC 11.3 x10^3/uL (4.0-10.0)
[2025-09-12 23:04] LABS: A/G RATIO 0.67; ALANINE AMINOTRANSFERASE,ALT 13 U/L (16-63); ASPARTATE AMNIOTRANSFERASE,AST 15 U/L (15-37); BILIRUBIN TOTAL 0.5 mg/dL (0.2-1.0); BLOOD UREA NITROGEN,BUN 15 mg/dL (7-18); CARBON DIOXIDE,CO2 32 mmol/L (21-32); CHLORIDE,CL 97 mmol/L (98-107); CREATINE KINASE,CK 35 U/L (39-308); CREATININE 0.7 mg/dL (0.70-1.30); GLUCOSE RANDOM 170 mg/dL (70-99); POTASSIUM,K 4.5 mmol/L (3.5-5.1); PRO B-TYPE NATRIUR PEPT,BNPPRO 3076 pg/mL (<=450); PROTEIN TOTAL,TP 7.5 g/dL (6.4-8.2); SODIUM,NA 137 mmol/L (136-145)
[2025-09-12 23:05] LABS: ESTIMATED GFR 95 mL/min (>=60)
[2025-09-12 23:33] LABS: APPEARANCE,URINE CLEAR (CLEAR); GLUCOSE,URINE 500 mg/dL (NEGATIVE); OCCULT BLOOD,URINE NEGATIVE (NEGATIVE)
[2025-09-13] MEDS: Iopamidol 755 Mg/ML 100 ML Bottle IVPUSH ONE (00:20)
[2025-09-13] MEDS: methylPREDNISolone Sodium Succinate 125 MG/2 ML SDV IVPUSH ONE (00:33)
[2025-09-13] MEDS: Metoprolol Tartrate 5 MG/5 ML SDV IVPUSH ONE (00:33)
== END 2025-09-13 02:15 | disposition short-term general hospital (02) ==
LOC: VM.ED 22:10
DX: I26.99 Other pulmonary embolism without acute cor pulmonale (principal); I10 Essential (primary) hypertension; E11.9 Type 2 diabetes mellitus without complications; Z90.49 Acquired absence of other specified parts of digestive tract; Z79.899 Other long term (current) drug therapy; Z79.84 Long term (current) use of oral hypoglycemic drugs; Z79.82 Long term (current) use of aspirin; Z88.0 Allergy status to penicillin; Z88.2 Allergy status to sulfonamides; Z88.8 Allergy status to other drugs, medicaments and biological substances
CPT/HCPCS: 36415; 71045; 71275; 80053; 81003; 82550; 83605; 83880; 84484; 85025; 85379; 86140; 87040; 87428-QW; 93005; 93010; 94640; 96372; 96374; 96375; 99284; 99285-25; A9270-GY; J0616; J0696; J1650; J2919; Q9967